=== PATIENT | female | born 1985 | race Hispanic/Latino ===

== ENCOUNTER 2020-01-09 01:30 | Emergency (ER) | payer SELFPAY ==
[2020-01-09 02:35] LABS: Absolute Lymphocytes (CBC) 3.2 K/uL (0.7-4.9); Basophils % 0.9 % (0-1.3); Lymphocytes % 33.4 % (15.3-44.8); MPV 9.5 fL (7.6-11.3); RBC Red Blood Cell Count 4.32 M/uL (3.86-4.86)
[2020-01-09 02:43] LABS: BUN Blood Urea Nitrogen 14 mg/dL (7-18); Bicarbonate 24 mmol/L (21-32); Glucose Level 109 mg/dL (74-106); Potassium 3.6 mmol/L (3.5-5.1); Sodium Level 144 mmol/L (136-145)
[2020-01-09 03:01] LABS: Urine Blood 3+ (NEG); Urine Glucose NEGATIVE (NEG); Urine Protein NEGATIVE (NEG); Urine Specific Gravity >1.030 (1.005-1.030)
--- NOTE | 2020-01-09 04:22 | ER ---
Nurse's Notes [facility] Name: Dolores uH Age: 34 yrs Sex: Female : 1985 Arrival Date: 01/09/2020 Time: 01:32 Bed 8 Private MD: Diagnosis: Abnormal uterine and vaginal bleeding, unspecified Presentation: 01/08 01:39 Chief complaint: Patient states: I think Im having a miscarriage, Im having severe sg lower abdominal cramping and vaginal bleeding that is heavy with and bright red as well, denies N/V/D/Fever, states less than 30 wks at this time. Coronavirus screen: Proceed with normal triage. Ebola Screen: Patient negative for fever greater than or equal to 101.5 degrees Fahrenheit, and additional compatible Ebola Virus Disease symptoms Patient denies exposure to infectious person. Patient denies travel to an Ebola-affected area in the 21 days before illness onset. No symptoms or risks identified at this time. Initial Sepsis Screen: Does the patient meet any 2 criteria? No. Patient's initial sepsis screen is negative. Does the patient have a suspected source of infection? No. Patient's initial sepsis screen is negative. Risk Assessment: Do you want to hurt yourself or someone else? Patient reports no desire to harm self or others. 01:39 Method Of Arrival: Ambulatory sg 01:39 Acuity: CHANG 3 sg Triage Assessment: 01:53 General: Appears uncomfortable, Behavior is appropriate for age. Pain: Complains of ea pain in abdomen. : Reports vaginal bleeding that is with clots, moderate flow. 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 - Social history:: Smoking status: Patient denies any tobacco usage or history of. Screenin:52 Abuse screen: Denies threats or abuse. Nutritional screening: No deficits noted. ea Tuberculosis screening: No symptoms or risk factors identified. Fall Risk None identified. Assessment: 02:21 General: Appears uncomfortable, Behavior is appropriate for age. Pain: Complains of ea pain in suprapubic area. Neuro: Level of Consciousness is awake, alert, obeys commands, Oriented to person, place, time, situation. Cardiovascular: Patient's skin is warm and dry. Respiratory: Airway is patent Respiratory effort is even, unlabored, Respiratory pattern is regular, symmetrical. Derm: Skin is pink, warm \T\ dry. 03:30 Reassessment: Patient and/or family updated on plan of care and expected duration. Pain ea level reassessed. Patient is alert, oriented x 3, equal unlabored respirations, skin warm/dry/pink. 04:15 Reassessment: Pt states she doesn't want to do the ultrasound. ea 04:29 Reassessment: Patient and/or family updated on plan of care and expected duration. Pain ea level reassessed. Patient is alert, oriented x 3, equal unlabored respirations, skin warm/dry/pink. Discharge instruction given to patient, verbalized the understanding of instruction. Pt left ED ambulatory tolerating well. Vital Signs: 01:39 Resp 18; Temp 98.1; Pulse Ox 100% on R/A; sg 01:52 BP 108 / 70; Pulse 75; Resp 18; Temp 98.3; Pulse Ox 97% on R/A; Weight 63.5 kg; Height ea 5 ft. 2 in. (157.48 cm); 03:32 BP 102 / 65; Pulse 66; Resp 18; Pulse Ox 99% on R/A; ea 04:18 BP 100 / 63; Pulse 62; Resp 18; Pulse Ox 99% ; ea 01:52 Body Mass Index 25.60 (63.50 kg, 157.48 cm) ea ED Course: 01:32 Patient arrived in ED. ds1 01:39 Arm band placed on. sg 01:41 Too Hussein MD is Attending Physician. mh7 01:42 Triage completed. sg 01:45 Cassia Fisher, RN is Primary Nurse. ea 01:54 Patient has correct armband on for positive identification. Bed in low position. Call ea light in reach. 02:21 Inserted saline lock: 20 gauge in right antecubital area, using aseptic technique. ea Blood collected. 03:31 Assist provider with pelvic exam: Set up pelvic tray. Performed by Too Hussein MD, ea Patient tolerated well. 04:15 IV discontinued, intact, bleeding controlled, No redness/swelling at site. Pressure ea dressing applied. 04:21 Evelyn Matos MD is Referral Physician. rafa Administered Medications: No medications were administered Outcome: 04:21 Discharge ordered by . rafa 04:29 Discharged to home ambulatory. ea 04:29 Condition: stable 04:29 Discharge instructions given to patient, Instructed on discharge instructions, follow up and referral plans. Demonstrated understanding of instructions, follow-up care. 04:30 Patient left the ED. ea Signatures: James Roca RN Shawna Eaton ds1 Cassia Fisher RN RN ea Holmes, Maurice, MD MD mh7 Corrections: (The following items were deleted from the chart) 01:53 01:52 BP 108 / 70; Pulse 75bpm; Resp 75bpm; Pulse Ox 97% RA; Temp 98.3F; 63.5 kg; ea Height 5 ft. 2 in.; BMI: 25.6; ea 01:53 01:52 BP 108 / 70; Pulse 18bpm; Resp 75bpm; Pulse Ox 97% RA; Temp 98.3F; 63.5 kg; ea Height 5 ft. 2 in.; BMI: 25.6; ea
--- NOTE | 2020-01-09 04:22 | EDPHYS ---
Physician Documentation [facility] Name: Dolores Hu Age: 34 yrs Sex: Female : 1985 Arrival Date: 01/09/2020 Time: 01:32 Bed 8 Private MD: ED Physician Too Hussein HPI: 01/08 01:52 This 34 yrs old Female presents to ER via Ambulatory with complaints of mh7 Vaginal Bleeding, Abdominal Cramping. 01:52 The patient presents with vaginal bleeding that is moderate, with clots, with tissue. mh7 Onset: The symptoms/episode began/occurred yesterday. Modifying factors: The symptoms are alleviated by nothing, the symptoms are aggravated by nothing. Associated signs and symptoms: Pertinent positives: cramping, vaginal bleeding, Pertinent negatives: constipation, diarrhea, dysuria, fever, hematuria, nausea, urinary frequency, vomiting. Severity of symptoms: At their worst the symptoms were moderate, yesterday, in the emergency department the symptoms have improved, moderately. The patient is sexually active. The patient's method of control includes nothing. 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 - Social history:: Smoking status: Patient denies any tobacco usage or history of. ROS: 01:52 Constitutional: Negative for fever, chills, and weight loss, Eyes: Negative for injury, mh7 pain, redness, and discharge, ENT: Negative for injury, pain, and discharge, Neck: Negative for injury, pain, and swelling, Cardiovascular: Negative for chest pain, palpitations, and edema, Respiratory: Negative for shortness of breath, cough, wheezing, and pleuritic chest pain, Back: Negative for injury and pain, MS/Extremity: Negative for injury and deformity, Skin: Negative for injury, rash, and discoloration, Neuro: Negative for headache, weakness, numbness, tingling, and seizure, Psych: Negative for depression, anxiety, suicide ideation, homicidal ideation, and hallucinations, Allergy/Immunology: Negative for hives, rash, and allergies, Endocrine: Negative for neck swelling, polydipsia, polyuria, polyphagia, and marked weight changes, Hematologic/Lymphatic: Negative for swollen nodes, abnormal bleeding, and unusual bruising. Exam: 01:52 Constitutional: This is a well developed, well nourished patient who is awake, alert, mh7 and in no acute distress. Head/Face: Normocephalic, atraumatic. Eyes: Pupils equal round and reactive to light, extra-ocular motions intact. Lids and lashes normal. Conjunctiva and sclera are non-icteric and not injected. Cornea within normal limits. Periorbital areas with no swelling, redness, or edema. Neck: Trachea midline, no thyromegaly or masses palpated, and no cervical lymphadenopathy. Supple, full range of motion without nuchal rigidity, or vertebral point tenderness. No Meningismus. Chest/axilla: Normal chest wall appearance and motion. Nontender with no deformity. No lesions are appreciated. Cardiovascular: Regular rate and rhythm with a normal S1 and S2. No gallops, murmurs, or rubs. Normal PMI, no JVD. No pulse deficits. Respiratory: Lungs have equal breath sounds bilaterally, clear to auscultation and percussion. No rales, rhonchi or wheezes noted. No increased work of breathing, no retractions or nasal flaring. Back: No spinal tenderness. No costovertebral tenderness. Full range of motion. Skin: Warm, dry with normal turgor. Normal color with no rashes, no lesions, and no evidence of cellulitis. MS/ Extremity: Pulses equal, no cyanosis. Neurovascular intact. Full, normal range of motion. Neuro: Awake and alert, GCS 15, oriented to person, place, time, and situation. Cranial nerves II-XII grossly intact. Motor strength 5/5 in all extremities. Sensory grossly intact. Cerebellar exam normal. Normal gait. Psych: Awake, alert, with orientation to person, place and time. Behavior, mood, and affect are within normal limits. 04:16 Abdomen/GI: Inspection: abdomen appears normal, Bowel sounds: normal, in all quadrants, mh7 Palpation: mild abdominal tenderness, in the suprapubic area, Rectal exam: the exam is deferred, because of patient request, Indicators: McBurney's point is not tender, Lundberg's sign is negative, Rovsing's sign is negative, Obturator sign is negative, Psoas sign is negative, Liver: no appreciated palpable abnormalities, Hernia: not appreciated. 04:16 : CVA tenderness, is absent, Pelvic Exam: External exam: is normal, Speculum exam: mild bleeding, no cervicitis, os that is closed, no tissue in cervix is seen, no tissue in vagina is seen, bimanual exam reveals normal findings, no adnexa tenderness or masses bilaterally, discharge, is not appreciated, the nurse was present for the exam, Gravid exam: Bladder: is normal. Vital Signs: 01:39 Resp 18; Temp 98.1; Pulse Ox 100% on R/A; sg 01:52 BP 108 / 70; Pulse 75; Resp 18; Temp 98.3; Pulse Ox 97% on R/A; Weight 63.5 kg; Height ea 5 ft. 2 in. (157.48 cm); 03:32 BP 102 / 65; Pulse 66; Resp 18; Pulse Ox 99% on R/A; ea 04:18 BP 100 / 63; Pulse 62; Resp 18; Pulse Ox 99% ; ea 01:52 Body Mass Index 25.60 (63.50 kg, 157.48 cm) ea MDM: 01:51 Patient medically screened. [facility] 04:16 Differential diagnosis: cervicitis, dysmenorrhea, ectopic , menometrorrhagia, mh7 menorrhea, ovarian cyst, ruptured ectopic , uterine fibroids, urinary tract infection. Data reviewed: vital signs, nurses notes, lab test result(s), Beta HCG: CBC, electrolytes, Rh: urinalysis. Data interpreted: Pulse oximetry: on room air is 99 %. Interpretation: normal. Counseling: I had a detailed discussion with the patient and/or guardian regarding: the historical points, exam findings, and any diagnostic results supporting the discharge/admit diagnosis, lab results, the need for outpatient follow up, to return to the emergency department if symptoms worsen or persist or if there are any questions or concerns that arise at home. Refusal of service: The patient/guardian displays adequate decision making capability and despite a detailed discussion of alternatives, benefits, risks, and consequences refuses: Ultrasound. 04:22 Response to treatment: the patient's symptoms have resolved after treatment, the mh7 patient's blood pressure is in an acceptable range, mental status has returned to baseline, the patient no longer shows bradycardia, the patient is not short of breath, the patient is not tachycardic, the patient's pain is gone, the patient's temperature has normalized. 01/08 01:50 Order name: Abo/rh Typing [facility] 01/08 01:50 Order name: Basic Metabolic Panel; Complete Time: 02:46 [facility] 01/08 01:50 Order name: CBC with Diff; Complete Time: 02:40 [facility] 01/08 01:51 Order name: ABO/RH typing; Complete Time: 02:50 EDMS 01/08 02:08 Order name: Urine Dipstick--Ancillary (enter results); Complete Time: 03:04 sg 01/08 02:08 Order name: Urine --Ancillary (enter results); Complete Time: 03:04 sg 01/08 01:50 Order name: IV Saline Lock; Complete Time: 02:08 [facility] 01/08 01:50 Order name: Labs collected and sent; Complete Time: 02:08 [facility] 01/08 01:50 Order name: NPO; Complete Time: 02:08 [facility] 01/08 01:50 Order name: Urine Dipstick-Ancillary (obtain specimen); Complete Time: 02:08 [facility] 01/08 01:50 Order name: Urine Test (obtain specimen); Complete Time: 02:09 [facility] 01/08 02:31 Interpretation: Abnormal. [facility] 01/08 02:09 Order name: Quantitative Hcg; Complete Time: 03:06 Administered Medications: No medications were administered Disposition: 01/09/20 04:21 Discharged to Home. Impression: Abnormal uterine and vaginal bleeding, unspecified. - Condition is Stable. - Discharge Instructions: Abnormal Uterine Bleeding, [id number]. - Family Work Release, Medication Reconciliation Form, Thank You Letter, Antibiotic Education, Prescription Opioid Use form. - Follow up: Private Physician; When: 1 - 2 days; Reason: Worsening of condition, Recheck today's complaints, Continuance of care, Re-evaluation by your physician. Follow up: Evelyn Matos MD; When: 1 - 2 days; Reason: Worsening of condition, Recheck today's complaints. - Problem is new. - Symptoms have improved. Signatures: Dispatcher [employer] EDJames Churchill, RN RN Cassia Paetl RN RN Too Dickson MD MD mh7 Corrections: (The following items were deleted from the chart) 04:30 04:21 01/09/2020 04:21 Discharged to Home. Impression: Abnormal uterine and vaginal ea bleeding, unspecified. Condition is Stable. Forms are Family Work Release, Medication Reconciliation Form, Thank You Letter, Antibiotic Education, Prescription Opioid Use. Follow up: Private Physician; When: 1 - 2 days; Reason: Worsening of condition, Recheck today's complaints, Continuance of care, Re-evaluation by your physician. Follow up: Evelyn Matos; When: 1 - 2 days; Reason: Worsening of condition, Recheck today's complaints. Problem is new. Symptoms have improved. mh7
[2020-01-09 04:35] VITALS: TEMP 98.3
[2020-01-09 04:37] VITALS: O2SAT 99
[2020-01-09 04:38] VITALS: BP 100/63
== END 2020-01-09 04:30 | disposition home or self-care (01) ==
LOC: ER 01:30
DX: N93.9 Abnormal uterine and vaginal bleeding, unspecified (principal)
CPT/HCPCS: 36415; 80048; 81003; 81025; 84702; 85025; 86900; 86901; 99284